=== PATIENT | female | born 1945 | race Caucasian/White ===

== ENCOUNTER → 2024-10-05 | Outpatient (CLI) | payer MEDICARE, SELFPAY | END | disposition home or self-care (01) | LOC: SWHD 13:40 | PROVIDERS: PCP Family Medicine; Referring Provider Family Medicine; Visit Provider Student in an Organized Health Care Education/Training Program | DX: L97.812 Non-pressure chronic ulcer of other part of right lower leg with fat layer exposed (principal); L03.116 Cellulitis of left lower limb; M81.0 Age-related osteoporosis without current pathological fracture; L53.8 Other specified erythematous conditions; R54 Age-related physical debility; R60.0 Localized edema; I73.9 Peripheral vascular disease, unspecified; I10 Essential (primary) hypertension | CPT/HCPCS: 97597; 97598; A9270 ==

== ENCOUNTER → 2024-10-19 | Outpatient (CLI) | payer MEDICARE, SELFPAY | END | disposition home or self-care (01) | PROVIDERS: PCP Family Medicine; Referring Provider Family Medicine; Visit Provider Student in an Organized Health Care Education/Training Program | DX: L97.812 Non-pressure chronic ulcer of other part of right lower leg with fat layer exposed (principal); L03.116 Cellulitis of left lower limb; M81.0 Age-related osteoporosis without current pathological fracture; L53.8 Other specified erythematous conditions; R54 Age-related physical debility; R60.0 Localized edema; I73.9 Peripheral vascular disease, unspecified; I10 Essential (primary) hypertension | CPT/HCPCS: 11042; A9270 ==

== ENCOUNTER → 2024-11-02 | Outpatient (CLI) | payer MEDICARE, SELFPAY | END | disposition home or self-care (01) | LOC: SWHD 12:43 | PROVIDERS: PCP Family Medicine; Referring Provider Family Medicine; Visit Provider Student in an Organized Health Care Education/Training Program | DX: L97.812 Non-pressure chronic ulcer of other part of right lower leg with fat layer exposed (principal); L03.116 Cellulitis of left lower limb; M81.0 Age-related osteoporosis without current pathological fracture; L53.8 Other specified erythematous conditions; R54 Age-related physical debility; R60.0 Localized edema; I73.9 Peripheral vascular disease, unspecified; I10 Essential (primary) hypertension | CPT/HCPCS: 11042; 11045; A9270 ==

== ENCOUNTER → 2024-11-09 | Outpatient (CLI) | payer MEDICARE, SELFPAY | END | disposition home or self-care (01) | PROVIDERS: PCP Family Medicine; Referring Provider Family Medicine; Visit Provider Student in an Organized Health Care Education/Training Program | DX: L97.812 Non-pressure chronic ulcer of other part of right lower leg with fat layer exposed (principal); L03.116 Cellulitis of left lower limb; M81.0 Age-related osteoporosis without current pathological fracture; L53.8 Other specified erythematous conditions; R54 Age-related physical debility; R60.0 Localized edema; I73.9 Peripheral vascular disease, unspecified; I10 Essential (primary) hypertension | CPT/HCPCS: 97597; A9270 ==

== ENCOUNTER → 2024-11-16 | Outpatient (CLI) | payer MEDICARE, SELFPAY | END | disposition home or self-care (01) | LOC: SWHD 12:36 | PROVIDERS: PCP Family Medicine; Referring Provider Family Medicine; Visit Provider Surgery | DX: L97.812 Non-pressure chronic ulcer of other part of right lower leg with fat layer exposed (principal); L03.116 Cellulitis of left lower limb; M81.0 Age-related osteoporosis without current pathological fracture; L53.8 Other specified erythematous conditions; R54 Age-related physical debility; R60.0 Localized edema; I73.9 Peripheral vascular disease, unspecified; I10 Essential (primary) hypertension | CPT/HCPCS: 11042; A9270 ==

== ENCOUNTER → 2024-11-23 | Outpatient (CLI) | payer MEDICARE, SELFPAY | END | disposition home or self-care (01) | LOC: SWHD 12:45 | PROVIDERS: PCP Family Medicine; Referring Provider Family Medicine; Visit Provider Student in an Organized Health Care Education/Training Program | DX: L97.812 Non-pressure chronic ulcer of other part of right lower leg with fat layer exposed (principal); L03.116 Cellulitis of left lower limb; M81.0 Age-related osteoporosis without current pathological fracture; L53.8 Other specified erythematous conditions; R54 Age-related physical debility; R60.0 Localized edema; I73.9 Peripheral vascular disease, unspecified; I10 Essential (primary) hypertension | CPT/HCPCS: 17250; A9270 ==

== ENCOUNTER → 2024-11-30 | Outpatient (CLI) | payer MEDICARE, SELFPAY | END | disposition home or self-care (01) | LOC: SWHD 12:45 | PROVIDERS: PCP Family Medicine; Referring Provider Family Medicine; Visit Provider Student in an Organized Health Care Education/Training Program | DX: L97.812 Non-pressure chronic ulcer of other part of right lower leg with fat layer exposed (principal); L03.116 Cellulitis of left lower limb; M81.0 Age-related osteoporosis without current pathological fracture; L53.8 Other specified erythematous conditions; R54 Age-related physical debility; R60.0 Localized edema; I73.9 Peripheral vascular disease, unspecified; I10 Essential (primary) hypertension | CPT/HCPCS: 17250; A9270 ==

== ENCOUNTER → 2024-12-07 | Outpatient (CLI) | payer MEDICARE, SELFPAY | END | disposition home or self-care (01) | LOC: SWHD 12:36 | PROVIDERS: PCP Family Medicine; Referring Provider Family Medicine; Visit Provider Student in an Organized Health Care Education/Training Program | DX: L97.822 Non-pressure chronic ulcer of other part of left lower leg with fat layer exposed (principal); L03.116 Cellulitis of left lower limb; M81.0 Age-related osteoporosis without current pathological fracture; L53.8 Other specified erythematous conditions; R54 Age-related physical debility; R60.0 Localized edema; I73.9 Peripheral vascular disease, unspecified; I10 Essential (primary) hypertension | CPT/HCPCS: 97597; A9270 ==

== ENCOUNTER → 2024-12-14 | Outpatient (CLI) | payer OTHER, SELFPAY | END | disposition home or self-care (01) | LOC: SWHD 12:31 | PROVIDERS: PCP Family Medicine; Referring Provider Family Medicine; Visit Provider Student in an Organized Health Care Education/Training Program | DX: L97.822 Non-pressure chronic ulcer of other part of left lower leg with fat layer exposed (principal); L03.116 Cellulitis of left lower limb; M81.0 Age-related osteoporosis without current pathological fracture; L53.8 Other specified erythematous conditions; R54 Age-related physical debility; R60.0 Localized edema; I73.9 Peripheral vascular disease, unspecified; I10 Essential (primary) hypertension | CPT/HCPCS: 11042; A9270 ==

== ENCOUNTER → 2024-12-28 | Outpatient (CLI) | payer MEDICARE, OTHER, SELFPAY | END | disposition home or self-care (01) | LOC: SWHD 12:51 | PROVIDERS: PCP Family Medicine; Referring Provider Family Medicine; Visit Provider Surgery | DX: L97.822 Non-pressure chronic ulcer of other part of left lower leg with fat layer exposed (principal); L03.116 Cellulitis of left lower limb; R60.0 Localized edema; R54 Age-related physical debility; I73.9 Peripheral vascular disease, unspecified; M81.0 Age-related osteoporosis without current pathological fracture; I10 Essential (primary) hypertension | CPT/HCPCS: 29581; A9270 ==

== ENCOUNTER → 2025-01-04 | Outpatient (CLI) | payer MEDICARE, SELFPAY | END | disposition home or self-care (01) | PROVIDERS: PCP Family Medicine; Referring Provider Family Medicine; Visit Provider Student in an Organized Health Care Education/Training Program | DX: S71.001A Unspecified open wound, right hip, initial encounter (principal); X58.XXXA Exposure to other specified factors, initial encounter; T81.89XA Other complications of procedures, not elsewhere classified, initial encounter; R60.0 Localized edema; R54 Age-related physical debility; I73.9 Peripheral vascular disease, unspecified; M81.0 Age-related osteoporosis without current pathological fracture; I10 Essential (primary) hypertension | CPT/HCPCS: 17250; A9270 ==

== ENCOUNTER → 2025-01-11 | Outpatient (CLI) | payer MEDICARE, SELFPAY | END | disposition home or self-care (01) | LOC: SWHD 12:53 | PROVIDERS: PCP Family Medicine; Referring Provider Family Medicine; Visit Provider Surgery | DX: L97.822 Non-pressure chronic ulcer of other part of left lower leg with fat layer exposed (principal); L03.116 Cellulitis of left lower limb; R60.0 Localized edema; R54 Age-related physical debility; I73.9 Peripheral vascular disease, unspecified; I10 Essential (primary) hypertension | CPT/HCPCS: 97597; A9270 ==

== ENCOUNTER → 2025-01-18 | Outpatient (CLI) | payer MEDICARE, SELFPAY | END | disposition home or self-care (01) | LOC: SWHD 12:43 | PROVIDERS: PCP Family Medicine; Referring Provider Family Medicine; Visit Provider Student in an Organized Health Care Education/Training Program | DX: L97.822 Non-pressure chronic ulcer of other part of left lower leg with fat layer exposed (principal); L03.116 Cellulitis of left lower limb; R60.0 Localized edema; R54 Age-related physical debility; I73.9 Peripheral vascular disease, unspecified; I10 Essential (primary) hypertension | CPT/HCPCS: 29581; A9270 ==

== ENCOUNTER → 2025-01-25 | Outpatient (CLI) | payer MEDICARE, SELFPAY | END | disposition home or self-care (01) | PROVIDERS: PCP Family Medicine; Referring Provider Family Medicine; Visit Provider Student in an Organized Health Care Education/Training Program | DX: L97.822 Non-pressure chronic ulcer of other part of left lower leg with fat layer exposed (principal); L03.116 Cellulitis of left lower limb; R60.0 Localized edema; R54 Age-related physical debility; I73.9 Peripheral vascular disease, unspecified; I10 Essential (primary) hypertension | CPT/HCPCS: 99213; G0463 ==

== ENCOUNTER → 2025-03-01 | Outpatient (CLI) | payer OTHER, SELFPAY | END | disposition home or self-care (01) | LOC: SWHD 12:52 | PROVIDERS: PCP Family Medicine; Referring Provider Family Medicine; Visit Provider Student in an Organized Health Care Education/Training Program | DX: L97.822 Non-pressure chronic ulcer of other part of left lower leg with fat layer exposed (principal); L03.116 Cellulitis of left lower limb; R60.0 Localized edema; R54 Age-related physical debility; I73.9 Peripheral vascular disease, unspecified; I10 Essential (primary) hypertension | CPT/HCPCS: 99212; G0463 ==